=== PATIENT | male | born 1970 | race African-American/Black ===

== ENCOUNTER 2020-01-08 15:49 | Inpatient (IN) | payer BC ==
[~2020-01-08] VITALS: Ht 167.6 cm; Wt 69.8 kg
[2020-01-08] MEDS ORDERED: CYCL5TAB PO (16:27)
[2020-01-08] MEDS ORDERED: LISI40TA4 PO (16:27)
[2020-01-08] MEDS ORDERED: NAPR-1023 PO (16:27)
[2020-01-08] MEDS ORDERED: AMLO-257 PO (16:27)
[2020-01-08 16:30] VITALS: BP 134/80
[2020-01-08] MEDS ORDERED: NITROGLYCERIN 0.4 MG SL TAB SL ONE (17:26)
[2020-01-08] MEDS ORDERED: NITROGLYCERIN 0.4 MG SL TAB SL PRN ×2 (17:30→23:00)
[2020-01-08 19:49] VITALS: BP 116/77
[2020-01-08] MEDS ORDERED: SODIUM CHLORIDE 0.9% 1000ML 1,000 ML IV SCH (22:55)
[2020-01-08] MEDS ORDERED: HYDRALAZINE HCL 20 MG/ML VIAL IV PRN (23:00)
[2020-01-08] MEDS ORDERED: ONDANSETRON HCL 4 MG/2 ML VIAL IV PRN (23:00)
[2020-01-08] MEDS ORDERED: ACETAMINOPHEN 325 MG TAB PO PRN ×2 (23:00)
[2020-01-08] MEDS ORDERED: MORPHINE SULFATE 2 MG/ML 1ML SYG IV PRN (23:00)
[2020-01-08] MEDS ORDERED: ZOLPIDEM TARTRATE 5 MG TAB PO PRN (23:15)
[2020-01-08 23:32] VITALS: BP 129/77
[2020-01-09 00:11] LABS: HEMOGLOBIN A1C 4.8 % (4.0-6.0)
[2020-01-09 05:08] VITALS: BP 101/64
[2020-01-09 05:18] LABS: BASOPHILS % (AUTO) 0.5 % (0.0-5.0); EOSINOPHILS % (AUTO) 3.1 % (0.0-8.0); HEMATOCRIT 36.3 % (42-54); LYMPHOCYTES % (AUTO) 55.1 % (21.0-51.0); MEAN CORPUSCULAR HEMOGLOBIN 31.3 pg (27.0-33.0); MEAN CORPUSCULAR HGB CONC 33.3 g/dL (32.0-36.0); MONOCYTES % (AUTO) 7.6 % (3.0-13.0); NEUTROPHILS % (AUTO) 33.5 % (40.0-77.0); PLATELET COUNT (AUTO) 214 K/uL (130-400); RED BLOOD CELL COUNT(AUTO) 3.86 MIL/uL (4.50-6.20); RED CELL DISTRIBUTION WIDTH 10.5 % (11.0-15.5); WHITE BLOOD COUNT (AUTO) 4.2 K/uL (4.8-10.8)
[2020-01-09 05:45] LABS: BILIRUBIN,TOTAL 1.1 mg/dL (0.2-1.0); POTASSIUM 3.6 mmol/L (3.5-5.1)
--- NOTE | 2020-01-09 06:51 | NUR ---
PATIENT RESTING IN BED. INTERMITTENT CHEST PAIN AT REST SUBSIDES WITH AMBULATION. NO MEDICATION NEEDED DURING THE NIGHT. DENIES SOB. NPO FOR JEANE.
[2020-01-09 08:06] VITALS: BP 128/89
[2020-01-09] MEDS: ASPIRIN 325 MG TABLET PO SCH (09:00)
[2020-01-09] MEDS: AMLODIPINE BESYLATE 5 MG TAB PO SCH (10:13)
[2020-01-09] MEDS: LISINOPRIL 40 MG TABLET PO SCH (10:14)
[2020-01-09] MEDS ORDERED: REGADENOSON 0.4 MG/5 ML PF SYG IVP SCH (10:15)
[2020-01-09 11:54] VITALS: BP 136/77
[2020-01-09] MEDS ORDERED: ASPIRIN 81MG TAB.CHEW ONE (15:39)
[2020-01-09 16:47] VITALS: BP 125/79
[2020-01-09] MEDS: FAMOTIDINE/PF 20 MG/2 ML VIAL IV SCH ×2 (17:45→20:29)
[2020-01-09] MEDS: ENOXAPARIN SODIUM 30 MG/0.3 ML SQ SCH (17:50)
[2020-01-09] MEDS ORDERED: POLYETHYLENE GLYCOL 3350 17 GM POWD.PACK PO SCH (18:15)
[2020-01-09] MEDS ORDERED: LACTULOSE 20 GM/30 ML UDCUP PO SCH (18:15)
[2020-01-09 19:00] VITALS: BP 140/85
--- NOTE | 2020-01-09 20:00 | NUR ---
ASSESS PT ALREADY HAD HIS SHOWER, TOLERATED ACTIVITY WELL. SALINE LOCK FLUSHED, PATENT. PEPCID IV WAS JUST ADMINISTERED AT 1745, DOSE IS TOO SOON TO BE GIVEN. PT HAS NOT EATEN MUCH OF HIS DINNER, ENCOURAGED TO EAT SOME MORE. KEPT RESTED. CALL LIGHT WITHIN REACH. WILL MONITOR PT. Addendum: 01/09/20 at 2308 by KELSEY CASANOVA RN RN Amended: Links added.
--- NOTE | 2020-01-09 22:20 | NUR ---
WALK PT ASKED TO WALK AROUND THE FLOOR HE CLAIMS THAT HE FEELS ANXIOUS. PT AMBULATORY AND NO DISTRESS NOTED. NO PAINS NOR DISCOMFORT VERBALIZES. ALLOWED PT TO WALK AROUND THE FLOOR WITH MASK ON.
[2020-01-10] VITALS: BP 131/80
--- NOTE | 2020-01-10 02:00 | NUR ---
ROUNDS PT RESTING WELL. NO DISTRESS NOTED. NO COMPLAINTS VERBALIZED. ENCOURAGED TO RELAX AND SLEEP. KEPT COMFORTABLE. WILL MONITOR PT.
[2020-01-10 03:59] LABS: ALBUMIN 4.1 g/dL (3.5-5.0); BILIRUBIN,TOTAL 0.6 mg/dL (0.2-1.0); CREATININE 1.2 mg/dL (0.5-1.5); POTASSIUM 3.6 mmol/L (3.5-5.1); TOTAL PROTEIN, SERUM 7.3 g/dL (6.0-8.3)
[2020-01-10 04:00] VITALS: BP 117/69
--- NOTE | 2020-01-10 06:35 | NUR ---
ROUNDS PT STILL ASLEEP. NO DISTRESS NOTED. KEPT RESTED. FOR MORE CARE.
[2020-01-10 08:12] VITALS: BP 129/75
[2020-01-10] MEDS: ASPIRIN 325 MG TABLET PO SCH (09:00)
[2020-01-10] MEDS ORDERED: ASPIRIN 81MG TAB.CHEW ONE (09:04)
[2020-01-10] MEDS: AMLODIPINE BESYLATE 5 MG TAB PO SCH (09:07)
[2020-01-10] MEDS: LISINOPRIL 40 MG TABLET PO SCH (09:07)
[2020-01-10] MEDS: FAMOTIDINE/PF 20 MG/2 ML VIAL IV SCH (09:08)
[2020-01-10] MEDS: ENOXAPARIN SODIUM 30 MG/0.3 ML SQ SCH (09:10)
[2020-01-10 12:19] VITALS: BP 120/73
[2020-01-10] MEDS ORDERED: GADODIAMIDE 10 MMOL/20 ML VIAL IV ONE (12:19)
--- NOTE | 2020-01-10 17:03 | NUR ---
DISCHARGE DISCHARGE INSTRUCTIONS GIVEN TO PATIENT, VERBALIZED UNDERSTANDING. APPOINTMENT SET UP WITH PATIENT TO FOLLOW UP WITH DR PAPPAS. PATIENT NEEDS TO TAKE REFERRAL FROM PRIMARY MD, SUAD VERBALIZED UNDERSTANDING. IV DISCONTINUED, TELEPAK REMOVED.
--- NOTE | 2020-01-11 08:51 | NUR ---
DC PLAN PATIENT DISCHARGED ALREADY GONE NO NEEDS VERBALIZED BY NURSING STAFF. Addendum: 01/11/20 at 0852 by BEATRIZ OHLLEY RN CM Amended: Links added.
== END 2020-01-10 18:00 | disposition home or self-care (01) | DRG 313 ==
LOC: 4AH 15:49
PROVIDERS: ADMIT Family Medicine; ATTEND Family Medicine
DX: R07.89 Other chest pain (principal); I10 Essential (primary) hypertension; R16.0 Hepatomegaly, not elsewhere classified; Z80.9 Family history of malignant neoplasm, unspecified; Z82.3 Family history of stroke; Z82.5 Family history of asthma and other chronic lower respiratory diseases
CPT/HCPCS: 36415; 74176; 74183; 78452; 80053; 82105; 82378; 83036; 84484; 85025; 93005; 93017; 93306; 93356; 96374; A9500; A9579; G0378; J1650; J2785; J3490